=== PATIENT | male | born 1980 | race African-American/Black ===

== ENCOUNTER 2024-10-16 18:24 | Emergency (ER) | payer SELFPAY ==
[2024-10-16 18:28] VITALS: BP 119/80
--- NOTE | 2024-10-16 18:54 | ED.GENMED ---
History of Present Illness
General
Chief Complaint: Musculo-Skeletal Complaint
Source: patient
Exam Limitations: none
Time Seen by Provider: 10/16/24 18:43
History of Present Illness
History of Present Illness:
This is a 43 year old male that is homeless. States that he is walked so much that his feet and legs hurt. States that he has tingling in his feet. Patient states that he has been seen at [facility] today and was discharged. States that
he did eat at [facility]. States that he has had some nausea and diarrhea. Denies any fever, chills, chest pain, SOB, abd pain, vomiting, headache, dizziness, urinary burning.
Past History
Past History
ED Past Medical History: None; Negative Asthma, HTN, Hypercholesterolemia or NIDDM
ED Past Surgical History: None
Social History
Tobacco: Smoker
Alcohol: None
Personal: Single
Living: homeless
Review of Systems
Review of Systems
All Other Systems: ROS reviewed and negative except as documented in HPI and ROS
Constitutional: Reports no symptoms; Denies fever or chills
EENT: Reports no symptoms
Respiratory: Reports no symptoms; Denies cough or trouble breathing
Cardiac: Reports no symptoms; Denies chest pain
ABD/GI: Reports nausea and diarrhea; Denies abdominal pain or vomiting
: Reports no symptoms; Denies dysuria, frequency or urgency
Musculoskeletal: Reports other (tingling in feet )
Skin: Reports no symptoms
Neurological: Reports no symptoms; Denies dizzy or headache
Psychiatric: Reports no symptoms
Phy Exam
General Physical Exam
General Presentation: no apparent distress
General age: appears stated age
General Skin: warm and dry
General Habitus: normal
General Mental: alert
General Hydration: appears well hydrated
ENT Exam
ENT Exam: TM's normal, pharynx normal and neck supple
Eye Exam
Eye Exam: EOMI
Cardiovascular Exam
Cardiovascular Exam: regular rate/rhythm, no edema, no murmur and normal peripheral pulses
Pulmonary Exam
Pulmonary Exam: lungs clear, no respiratory distress, no rales, chest non tender, no crackles, no rhonchi, no wheezing and no cough
Gastrointestinal Exam
Gastrointestinal Exam: normal bowel sounds, non tender, soft, no organomegaly, no pulsatile mass and non distended
Musculoskeletal Exam
Musculoskeletal Exam: full ROM and no edema
Skin Exam
Skin Exam: normal color, warm/dry, no rash, no petechia and other (Feet with good pulses, Negative for any redness, Swelling or open wound )
Psychiatric Exam
Psychiatric Exam: normal mood/affect
Course
Vital Signs
Initial and Last Documented VS:
Initial Vital Signs
Temp Pulse Resp BP Pulse Ox
97.4 F 91 18 119/80 99
10/16/24 18:28 10/16/24 18:28 10/16/24 18:28 10/16/24 18:28 10/16/24 18:28
Last Documented Vital Signs
Temp Pulse Resp BP Pulse Ox
97.4 F 91 18 119/80 99
10/16/24 18:28 10/16/24 18:28 10/16/24 18:28 10/16/24 18:28 10/16/24 18:28
MDM/Problems Addressed
Differential Diagnosis Includes:
Homeless, Musculoskeletal pain from walking
MDM/Problems Addressed:
This is a 43 year old male that has been seen at [facility] today for the same complaint. Patient is homeless and states that he just wanted to rest.
Attempting to get papers from [facility] and [facility].
Spoke with Charge nurse and will have patient sit in the waiting room. Patient states that he had Advil so will give patient Tylenol at this time.
Chronic conditions affecting care:
NA
Acute Exacerbation and/or Progression of Chronic Illness:
NA
*Pulse Oximetry
Patient hypoxic: no
*EKG
Interpreted by ED Provider?: NA
Rate: EKG- N/A
*Admission Discharge Rn Interpretation
Rate: Admission Discharge Rn- N/A
*Critical Care Note
Total Time (30-74mins, 75-104mins- exclusive of procedures): Not Applicable
ED Attending Note
-
Portions of this chart may have been created with voice recognition software.� Occasional wrong word or��sound alike� substitutions may have occurred due to the inherent limitations of voice recognition software.
Discharge Plan
Departure
Patient Disposition: Home (Routine Discharge)
Date of Disposition: 10/16/24
Time of Disposition: 19:37
Patient with high blood pressure during this ER visit?: No
Condition: Good
Covid-19: Not Applicable
Discharge Problem:
Homeless, Leg pain
Instructions: Musculoskeletal Pain
Activity Restrictions/Additional Instructions:
As discussed, you have no open wounds Redness or swelling. There is good pulses in both feet with lots of Calluses. You may sit in the waiting area until morning. Follow up with a family doctor or Clinic. IF YOU HAVE ANY OTHER CONCERNS PLEASE
RETURN TO THE EMERGENCY ROOM.
Interventions
Interventions:
*Risk Screen - Suicide Last Done: 10/16/24 18:32
*Neglect/Abuse Screening Last Done: 10/16/24 18:32
Discharge Date and Time
Print Language: TURKISH
[2024-10-16] MEDS: TYLENOL 1000 MG PO (20:16)
== END 2024-10-16 20:28 | disposition home or self-care (01) ==
LOC: EMR 18:24
PROVIDERS: EMERGENCY PHYSICIAN Emergency Medicine
DX: R20.2 Paresthesia of skin (principal); M79.605 Pain in left leg; M79.604 Pain in right leg; M79.672 Pain in left foot; M79.671 Pain in right foot; R19.7 Diarrhea, unspecified; R11.0 Nausea; Z59.00 Homelessness unspecified; F17.200 Nicotine dependence, unspecified, uncomplicated
CPT/HCPCS: 99283